=== PATIENT | male | born 1930 | race Caucasian/White ===

== ENCOUNTER 2016-09-28 01:48 | Emergency (ER) | payer MEDICARE, BC ==
[2016-09-28 02:12] VITALS: BP 117/60
--- NOTE | 2016-09-28 02:41 | EDM.PDOC ---
ED HPI GENERAL MEDICAL PROBLEM - General Chief Complaint: General Stated Complaint: confusion, hallucinations Time Seen by Provider: 09/28/16 02:27 Source of Information: Reports: Family, RN History Limitations: Reports: Altered mental status - History of Present Illness INITIAL COMMENTS - FREE TEXT/NARRATIVE: This patient is an 86 year old male that resides in assisted living at [facility]. The family, two females are at bedside. They are patient historians. 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 They report that the patient over the last couple of months has had worsening in hallucinations. They report that the patient usually thinks that people are selling his land, trying ti kill him, and people have guns around him. They report that he had this again today, a little worse than usual. They report that today the patient has wandered out of the assisted living on two separate occasions. They report that one of the family members found him wondering in the parking lot of the local [employer]. They reported that wandering for him is not his normal. They report the last time they saw him before today was Easter and he was acting about the same, except for wandering. Patient has no unilateral weaknesses or drifting that is seen. He was ambulatory with wandering. Patient to me during the exam does not answer y history taking questions. He does tell me and his family there were people in his apartment with a gun. Onset Date: 09/27/16 Severity: mild Improves with: Reports: None Worsens with: Reports: None Associated Symptoms: Reports: confusion, loss of appetite. Denies: chest pain, cough, cough w sputum, diaphoresis, fever/chills, headaches, malaise, nausea/ vomiting, rash, seizure, shortness of breath, syncope, weakness - Related Data Allergies Allergy/AdvReac Type Severity Reaction Status Date / Time No Known Allergies Allergy Verified 09/28/16 01:53 Home Meds: Home Meds Folic Acid 1 mg PO DAILY 09/26/13 [History] Levothyroxine Sodium [Synthroid] 100 mcg PO ACBRK 09/26/13 [History] Omeprazole [Prilosec] 20 mg PO DAILY 09/26/13 [History] Simvastatin 40 mg PO DAILY 09/26/13 [History] Ferrous Sulfate [Iron] 325 mg PO DAILY 10/05/13 [History] Acetaminophen/Diphenhydramine [Hm Acetaminophen Pm Caplet] 500 mg PO BID [History] Cholecalciferol (Vitamin D3) [Vitamin D3] 2,000 unit PO DAILY 09/28/16 [History] Furosemide [Lasix] 40 mg PO DAILY 09/28/16 [History] QUEtiapine [SEROquel] 12.5 mg PO DAILY 09/28/16 [History] Triamterene/Hydrochlorothiazid [Triamterene-HCTZ 37.5-25 MG] 1 tab PO DAILY [History] Social & Family History - Tobacco Use Second Hand Smoke Exposure: No - Living Situation & Occupation Living situation: Reports: single, 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.) ED ROS GENERAL - Review of Systems Review Of Systems: See Below Constitutional: Reports: decreased appetite HEENT: Reports: No symptoms Respiratory: Reports: No Symptoms Cardiovascular: Reports: No symptoms Endocrine: Reports: no symptoms GI/Abdominal: Reports: No symptoms : Reports: no symptoms Musculoskeletal: Reports: no symptoms Skin: Reports: no symptoms Neurological: Reports: Confusion (chronic), Other (wandering) Psychiatric: Reports: Hallucinations (chronic) Hematologic/Lymphatic: Reports: anemia (chronic) Immunologic: Reports: no symptoms ED EXAM, GENERAL - Physical Exam Exam: See Below Exam Limited By: Altered mental status (Chronic with hallucinations.) General Appearance: alert, WD/WN, no apparent distress Eye Exam: bilateral eye: normal inspection, PERRL Ears: normal external exam, normal canal, hearing grossly normal, normal TMs Ear Exam: bilateral ear: auricle normal, canal normal, TM normal Nose: normal inspection, normal mucosa Throat/Mouth: Normal lips, Normal gums, Normal oropharynx, Normal voice, No airway compromise, Other (poor dental decay) Head: atraumatic, normocephalic Neck: normal inspection, supple, non-tender, full range of motion Respiratory/Chest: no respiratory distress, lungs clear, normal breath sounds, no accessory muscle use, chest non-tender Cardiovascular: normal peripheral pulses, regular rate, rhythm, no edema, no gallop, no JVD, no murmur, no rub Peripheral Pulses: 2+: posterior tibial (L), posterior tibial (R), dorsalis pedis (L), dorsalis pedis (R) GI/Abdominal: soft, non tender Back Exam: normal inspection, full range of motion Extremities: normal inspection, normal range of motion, non-tender, no pedal edema, normal capillary refill Neurological: alert, confused (chronic) Psychiatric: other (hallucinations) Skin Exam: Warm, Dry, Intact, Normal color, No rash Lymphatic: no adenopathy Course - Vital Signs Last Recorded V/S: Last Vital Signs Temp 96.8 F 09/28/16 02:07 Pulse 78 09/28/16 02:07 Resp 16 09/28/16 02:07 BP 117/60 09/28/16 02:07 Pulse Ox 98 09/28/16 02:07 - Orders/Labs/Meds Orders: Active Orders 24 hr Category Date Time Status EKG Documentation Completion [RC] STAT Care 09/28/16 02:58 Active Chest 2V [CR] Stat Exams 09/28/16 02:38 Taken Head wo Cont [CT] Stat Exams 09/28/16 02:38 Taken Sodium Chloride 0.9% [Normal Saline] 500 ml Med 09/28/16 03:00 Active IV .BOLUS Medication Orders Sodium Chloride (Normal Saline) 500 mls @ 500 mls/hr IV .BOLUS JANELLE Last Admin: 09/28/16 03:15 Dose: 500 mls/hr Labs: Laboratory Tests 09/28/16 09/28/16 09/28/16 Range/Units 02:18 02:27 02:27 WBC 6.9 (5.0-10.0) 10^3/uL RBC 1.95 L (4.50-6.00) 10^6/uL Hgb 8.5 L (14.0-18.0) g/dL Hct 22.0 L (40.0-54.0) % MCV 112.8 H (82.0-94.0) fL MCH 43.6 H (27.0-32.0) pg MCHC 38.6 H (33.0-38.0) g/dL RDW Coeff of Jc 12.7 (11.0-15.0) % Plt Count 298 (150-400) 10^3/uL Neut % (Auto) 80.3 (35-85) % Lymph % (Auto) 6.3 L (10-55) % [place] % (Auto) 12.1 (0-16) % Eos % (Auto) 1.0 (0-5) % Baso % (Auto) 0.3 (0-3) % Neut # (Auto) 5.56 (1.80-7.00) 10^3/uL Lymph # (Auto) 0.44 L (1.00-4.80) 10^3/uL Kleberg # (Auto) 0.84 H (0.00-0.80) 10^3/uL Eos # (Auto) 0.07 (0.00-0.45) 10^3/uL Baso # (Auto) 0.02 10^3/uL Sodium 129 L (136-145) mEq/L Potassium 3.6 (3.5-5.0) mEq/L Chloride 92 L (98-106) mEq/L Carbon Dioxide 28 (21-32) mmol/L BUN 21 H (7-18) mg/dL Creatinine 1.2 (0.7-1.3) mg/dL Est Cr Clr Drug Dosing 31.48 mL/min Estimated GFR (MDRD) 57 L (>=60) mL/min Glucose 101 H (75-99) mg/dL Calcium 8.8 (8.4-10.1) mg/dL Total Bilirubin 2.6 H (0.0-1.0) mg/dL AST 30 (15-37) U/L ALT 18 (12-78) U/L Alkaline Phosphatase 72 (46-116) U/L Total Protein 7.6 (6.4-8.2) g/dL Albumin 4.2 (3.4-5.0) g/dL Urine Color Yellow (YELLOW) Urine Appearance Clear (CLEAR) Urine pH 6.5 (4.5-8.0) Ur Specific [place] 1.010 (1.003-1.020) Urine Protein Negative (NEGATIVE) mg/dL Urine Glucose (UA) Negative (NEGATIVE) mg/dL Urine Ketones Negative (NEGATIVE) mg/dL Urine Occult Blood Trace-intact H (NEGATIVE) Urine Nitrite Negative (NEGATIVE) Urine Bilirubin Negative (NEGATIVE) Urine Urobilinogen 0.2 (0.2-1.0) EU/dL Ur Leukocyte Esterase Negative (NEGATIVE) Urine RBC Not seen (0-5) /HPF Urine WBC Not seen (0-5) /HPF Meds: Medications Generic Name Dose Route Start Last Admin Trade Name Linsey PRN Reason Stop Dose Admin Sodium Chloride 500 mls @ 500 mls/hr 09/28/16 03:00 09/28/16 03:15 Normal Saline IV 500 mls/hr .BOLUS JANELLE Administration - Radiology Interpretation Free Text/Narrative:: Head CT: interpreted by radiologist: no acute shift, no acute bleed, no acute infarct. chronic vascular disease, increased flap craniotomy. CXR: No infiltrates, edema, cardiac enlargement. CT Results Date: 09/28/16 CT Results Time: Departure - Departure Time of Disposition: : Disposition: Home, Self-Care 01 Condition: good Clinical Impression: Dehydration, Hallucination, visual, Wandering Instructions: Dementia, [id number] Referrals: Antonio Vega MD [Primary Care Provider] - Forms: ED Department Discharge Additional Instructions: Followup with your primary care provider Return to the ER for worsening of condition or any emergent concerns Discuss possible [place] [facility] placement with [facility] or other living arrangements Increase fluids Do not leave unattended - My Orders Last 24 Hours: My Active Orders 09/28/16 02:38 Chest 2V [CR] Stat Head wo Cont [CT] Stat 09/28/16 02:58 EKG Documentation Completion [RC] STAT 09/28/16 03:00 Sodium Chloride 0.9% [Normal Saline] 500 ml IV .BOLUS - Assessment/Plan Last 24 Hours: My Active Orders 09/28/16 02:38 Chest 2V [CR] Stat Head wo Cont [CT] Stat 09/28/16 02:58 EKG Documentation Completion [RC] STAT 09/28/16 03:00 Sodium Chloride 0.9% [Normal Saline] 500 ml IV .BOLUS Plan: PLEASE SEE RN NOTE FOR PFSH.
[2016-09-28] MEDS ORDERED: Sodium Chloride 0.9% 500 ML IV SCH (03:00)
== END 2016-09-28 04:37 | disposition home or self-care (01) ==
LOC: CC.ED 01:48
DX: R44.1 Visual hallucinations (principal); E86.0 Dehydration; Z79.899 Other long term (current) drug therapy
CPT/HCPCS: 36415; 70450; 71020; 80053; 81001; 85025; 93005; 96360; 99285; J7040; 93010; 96365